=== PATIENT | female | born 1985 | race African-American/Black ===

== ENCOUNTER 2022-09-11 07:57 | Inpatient (IN) | payer OTHER ==
[2022-09-11 08:50] VITALS: BMI 25.1
[2022-09-11] MEDS ORDERED: LOPERAMIDE HCL 2 MG CAPSULE PO PRN (09:41)
[2022-09-11] MEDS ORDERED: NALOXONE HCL 0.4 MG/ML VIAL IM PRN (09:41)
[2022-09-11] MEDS ORDERED: POLYETHYLENE GLYCOL (HEALTHYLAX) 3350 17 GM PACKET PO PRN (09:41)
[2022-09-11] MEDS ORDERED: COLLOIDAL OATMEAL 1 BAR EACH TP PRN (09:41)
[2022-09-11] MEDS ORDERED: guaiFENesin 600 MG TABLET.ER (FP) PO PRN (09:41)
[2022-09-11] MEDS ORDERED: AMMONIUM LACTATE 12% LOTION 225 GM BOTTLE TP PRN (09:41)
[2022-09-11] MEDS ORDERED: MAG HYDROX/AL HYDROX/SIMETH 30 ML UNIT-DOSE CUP PO PRN (09:41)
[2022-09-11] MEDS ORDERED: BENZOCAINE/MENTHOL (CHLORASEPTIC ) LOZENGE MM PRN (09:41)
[2022-09-11] MEDS ORDERED: BENZONATATE 200 MG CAPSULE PO PRN (09:41)
[2022-09-11] MEDS ORDERED: MAGNESIUM HYDROX 2400MG/30ML ORAL SUSPENSION 30 ML CUP PO PRN (09:41)
[2022-09-11] MEDS ORDERED: NALOXONE HCL (KLOXXADO) 8 MG SPRAY NS PRN (09:41)
[2022-09-11] MEDS ORDERED: INSULIN (NOVOLOG) ASPART 100 UNITS/ML 10ML VIAL ONE (10:34)
[2022-09-11] MEDS ORDERED: NICOTINE 21 MG/24 HOURS TOPICAL PATCH ONE (10:35)
[2022-09-11] MEDS ORDERED: PRENATAL VITAMINS W/ FOLIC ACID TABLET (FP) PO ONE (10:36)
[2022-09-11] MEDS ORDERED: BUPRENORPHINE/NALOXONE 4 MG/1 MG FILM PACKET ONE (10:37)
[2022-09-11] MEDS: BUPRENORPHINE/NALOXONE 8 MG/2 MG FILM PACKET SL SCH ×3 (10:55→21:47)
[2022-09-11] MEDS: PRENATAL VITAMINS W/ FOLIC ACID TABLET (FP) PO SCH (10:56)
[2022-09-11] MEDS: metFORMIN HCL 500 MG TABLET (FP) PO SCH ×2 (10:57→17:17)
[2022-09-11] MEDS: NICOTINE 21 MG/24 HOURS TOPICAL PATCH TD SCH (10:57)
[2022-09-11] MEDS ORDERED: INSULIN SLIDING SCALE (NOVOLOG) 1 VIAL SQ SCH (11:00)
[2022-09-11] MEDS ORDERED: NICOTINE POLACRILEX 2 MG GUM ONE (12:31)
[2022-09-11] MEDS: NICOTINE POLACRILEX 2 MG GUM BUC PRN ×3 (12:33→21:54)
[2022-09-11 14:55] LABS: HEMATOCRIT 35.6 % (32.4-45.2); MCH 29.1 pg (25.7-33.7); MCHC 33.8 g/dl (32.0-36.0); PLATELET COUNT 265 10^3/uL (134-434); RBC 4.14 M/mm3 (3.60-5.2); WHITE BLOOD COUNT 3.7 K/mm3 (4.0-10.0)
[2022-09-11 15:12] LABS: CALCIUM 8.7 mg/dL (8.5-10.1)
[2022-09-11 15:13] LABS: ALBUMIN 3.1 g/dl (3.4-5.0); BLOOD UREA NITROGEN 9.7 mg/dL (7-18)
[2022-09-11 15:15] LABS: CREATININE 0.7 mg/dL (0.55-1.3)
[2022-09-11 15:17] LABS: BILIRUBIN,TOTAL 0.2 mg/dL (0.2-1); TOT PROT 5.9 g/dl (6.4-8.2)
[2022-09-11 15:28] LABS: SYPHILIS W/ RPR CONF NON-REACTIVE (NONREACTIVE)
[2022-09-11] MEDS: INSULIN SLIDING SCALE (NOVOLOG) 1 VIAL SQ SCH ×2 (17:17→22:33)
[2022-09-11] MEDS: MELATONIN 5 MG TABLETS PO SCH (21:47)
[2022-09-11] MEDS: THIAMINE HCL 100 MG TABLET (FP) PO SCH (21:47)
[2022-09-11] MEDS ORDERED: INSULIN (LEVEMIR) 100 UNITS/ML UNITS SQ SCH (22:00)
[2022-09-12] MEDS: BUPRENORPHINE/NALOXONE 8 MG/2 MG FILM PACKET SL SCH ×3 (07:12→21:06)
[2022-09-12] MEDS: metFORMIN HCL 500 MG TABLET (FP) PO SCH ×2 (07:12→17:23)
[2022-09-12] MEDS: INSULIN SLIDING SCALE (NOVOLOG) 1 VIAL SQ SCH ×4 (07:14→21:06)
[2022-09-12] MEDS: PRENATAL VITAMINS W/ FOLIC ACID TABLET (FP) PO SCH ×2 (10:41→11:23)
[2022-09-12] MEDS: NICOTINE 21 MG/24 HOURS TOPICAL PATCH TD SCH (10:41)
[2022-09-12] MEDS: NICOTINE POLACRILEX 2 MG GUM BUC PRN ×5 (11:22→21:08)
[2022-09-12] MEDS: NICOTINE 10 MG CARTRIDGE (INHALER) IH PRN ×3 (11:22→21:08)
[2022-09-12] MEDS ORDERED: INSULIN (NOVOLOG) ASPART 100 UNITS/ML 10ML VIAL ONE (12:25)
[2022-09-12] MEDS: ACETAMINOPHEN 325 MG TABLET (FP) PO PRN (14:25)
[2022-09-12] MEDS: hydrOXYzine PAMOATE 25 MG CAPSULE (FP) PO PRN (15:41)
[2022-09-12] MEDS: IBUPROFEN 600 MG TABLET (FP) PO PRN (20:00)
[2022-09-12] MEDS: THIAMINE HCL 100 MG TABLET (FP) PO SCH (21:07)
[2022-09-12] MEDS: GABAPENTIN 100 MG CAPSULE PO SCH (21:07)
[2022-09-12] MEDS: MELATONIN 5 MG TABLETS PO SCH (21:07)
[2022-09-12] MEDS ORDERED: PATIENT'S OWN MEDICATION (NON-FORMULARY) (Hydroxyzine Hcl [Hydroxyzine Hcl] 25 MG Tablet) PO SCH (22:00)
[2022-09-13] MEDS: GABAPENTIN 100 MG CAPSULE PO SCH (06:23)
[2022-09-13] MEDS: BUPRENORPHINE/NALOXONE 8 MG/2 MG FILM PACKET SL SCH ×3 (06:23→21:42)
[2022-09-13] MEDS: metFORMIN HCL 500 MG TABLET (FP) PO SCH ×2 (06:23→17:08)
[2022-09-13] MEDS: NICOTINE 10 MG CARTRIDGE (INHALER) IH PRN ×3 (06:24→21:45)
[2022-09-13] MEDS ORDERED: INSULIN (NOVOLOG) ASPART 100 UNITS/ML 10ML VIAL ONE (06:41)
[2022-09-13] MEDS: INSULIN SLIDING SCALE (NOVOLOG) 1 VIAL SQ SCH ×4 (07:54→21:45)
[2022-09-13] MEDS: IBUPROFEN 600 MG TABLET (FP) PO PRN ×2 (08:28→15:20)
[2022-09-13] MEDS ORDERED: VENLAFAXINE HCL 75 MG E.R. CAPSULES PO SCH (10:00)
[2022-09-13] MEDS: PRENATAL VITAMINS W/ FOLIC ACID TABLET (FP) PO SCH (11:33)
[2022-09-13] MEDS: NICOTINE POLACRILEX 2 MG GUM BUC PRN ×5 (11:37→21:46)
[2022-09-13] MEDS: NICOTINE 21 MG/24 HOURS TOPICAL PATCH TD SCH (11:41)
[2022-09-13] MEDS: lamoTRIgine 100 MG TABLET PO SCH (11:49)
[2022-09-13] MEDS: hydrOXYzine PAMOATE 25 MG CAPSULE (FP) PO PRN (14:06)
[2022-09-13] MEDS: THIAMINE HCL 100 MG TABLET (FP) PO SCH (21:42)
[2022-09-13] MEDS: PREGABALIN 100 MG CAPSULE PO SCH (21:42)
[2022-09-13] MEDS: MELATONIN 5 MG TABLETS PO SCH (21:42)
[2022-09-13] MEDS ORDERED: PREGABALIN 100 MG CAPSULE PO SCH (22:00)
[2022-09-14] MEDS: NICOTINE 10 MG CARTRIDGE (INHALER) IH PRN ×5 (03:17→19:33)
[2022-09-14] MEDS: NICOTINE POLACRILEX 2 MG GUM BUC PRN ×7 (03:17→19:37)
[2022-09-14] MEDS: metFORMIN HCL 500 MG TABLET (FP) PO SCH ×2 (06:42→17:20)
[2022-09-14] MEDS: BUPRENORPHINE/NALOXONE 8 MG/2 MG FILM PACKET SL SCH ×3 (06:42→21:10)
[2022-09-14] MEDS ORDERED: INSULIN (NOVOLOG) ASPART 100 UNITS/ML 10ML VIAL ONE ×2 (06:45→12:00)
[2022-09-14] MEDS: INSULIN SLIDING SCALE (NOVOLOG) 1 VIAL SQ SCH ×4 (06:45→21:09)
[2022-09-14] MEDS: ACETAMINOPHEN 325 MG TABLET (FP) PO PRN (07:12)
[2022-09-14] MEDS: PRENATAL VITAMINS W/ FOLIC ACID TABLET (FP) PO SCH (09:18)
[2022-09-14] MEDS: lamoTRIgine 100 MG TABLET PO SCH (09:18)
[2022-09-14] MEDS: PREGABALIN 100 MG CAPSULE PO SCH ×2 (09:19→21:11)
[2022-09-14] MEDS: NICOTINE 21 MG/24 HOURS TOPICAL PATCH TD SCH (09:19)
[2022-09-14] MEDS: IBUPROFEN 600 MG TABLET (FP) PO PRN (14:16)
[2022-09-14] MEDS: IBUPROFEN 400 MG TABLET (FP) PO PRN (16:11)
[2022-09-14] MEDS: hydrOXYzine PAMOATE 25 MG CAPSULE (FP) PO PRN (19:36)
[2022-09-14] MEDS: MELATONIN 5 MG TABLETS PO SCH (21:10)
[2022-09-14] MEDS: THIAMINE HCL 100 MG TABLET (FP) PO SCH (21:10)
[2022-09-15] MEDS: NICOTINE 10 MG CARTRIDGE (INHALER) IH PRN ×5 (01:49→19:58)
[2022-09-15] MEDS: NICOTINE POLACRILEX 2 MG GUM BUC PRN ×10 (01:49→21:29)
[2022-09-15] MEDS: metFORMIN HCL 500 MG TABLET (FP) PO SCH ×2 (06:32→16:45)
[2022-09-15] MEDS: BUPRENORPHINE/NALOXONE 8 MG/2 MG FILM PACKET SL SCH ×3 (06:32→19:52)
[2022-09-15] MEDS: INSULIN SLIDING SCALE (NOVOLOG) 1 VIAL SQ SCH ×4 (06:34→22:02)
[2022-09-15] MEDS: IBUPROFEN 400 MG TABLET (FP) PO PRN (06:46)
[2022-09-15] MEDS ORDERED: INSULIN (NOVOLOG) ASPART 100 UNITS/ML 10ML VIAL ONE ×2 (07:12→11:51)
[2022-09-15] MEDS: lamoTRIgine 100 MG TABLET PO SCH (09:58)
[2022-09-15] MEDS: PRENATAL VITAMINS W/ FOLIC ACID TABLET (FP) PO SCH (09:58)
[2022-09-15] MEDS: hydrOXYzine PAMOATE 25 MG CAPSULE (FP) PO PRN (09:59)
[2022-09-15] MEDS: PREGABALIN 100 MG CAPSULE PO SCH (10:26)
[2022-09-15] MEDS: DESVENLAFAXINE SUCCINATE PO SCH (13:15)
[2022-09-15] MEDS: BACLOFEN 10 MG TABLET (FP) PO SCH ×2 (13:17→21:28)
[2022-09-15 14:53] LABS: PH,URINE 6.5 (5.0-8.0); URINE APPEARANCE CLOUDY; URINE BILIRUBIN NEGATIVE (NEGATIVE); URINE COLOR YELLOW; URINE GLUCOSE (UA) TRACE (NEGATIVE); URINE KETONE NEGATIVE (NEGATIVE); URINE LEUK ESTERASE NEGATIVE (NEGATIVE); URINE NITRITE NEGATIVE (NEGATIVE); URINE PROTEIN NEGATIVE (NEGATIVE); URINE UROBILINOGEN 0.2 mg/dL (0.2-1.0)
[2022-09-15] MEDS: THIAMINE HCL 100 MG TABLET (FP) PO SCH (21:28)
[2022-09-15] MEDS: MELATONIN 5 MG TABLETS PO SCH (21:28)
[2022-09-16] MEDS: NICOTINE POLACRILEX 2 MG GUM BUC PRN ×10 (00:28→22:36)
[2022-09-16] MEDS: IBUPROFEN 400 MG TABLET (FP) PO PRN (05:55)
[2022-09-16] MEDS: BACLOFEN 10 MG TABLET (FP) PO SCH ×3 (05:56→21:07)
[2022-09-16] MEDS: BUPRENORPHINE/NALOXONE 8 MG/2 MG FILM PACKET SL SCH ×3 (05:58→20:09)
[2022-09-16] MEDS: INSULIN SLIDING SCALE (NOVOLOG) 1 VIAL SQ SCH ×4 (08:06→21:09)
[2022-09-16] MEDS: metFORMIN HCL 500 MG TABLET (FP) PO SCH ×2 (08:07→16:47)
[2022-09-16] MEDS: PRENATAL VITAMINS W/ FOLIC ACID TABLET (FP) PO SCH (10:28)
[2022-09-16] MEDS: DESVENLAFAXINE SUCCINATE PO SCH (10:28)
[2022-09-16] MEDS: lamoTRIgine 100 MG TABLET PO SCH (10:28)
[2022-09-16] MEDS: PREGABALIN 100 MG CAPSULE PO SCH (10:28)
[2022-09-16] MEDS: NICOTINE 10 MG CARTRIDGE (INHALER) IH PRN ×4 (10:30→21:08)
[2022-09-16] MEDS ORDERED: INSULIN (NOVOLOG) ASPART 100 UNITS/ML 10ML VIAL ONE (11:57)
[2022-09-16] MEDS ORDERED: TUBERCULIN PPD 5 TU/0.1ML VIAL ID ONE ×2 (15:32→16:09)
[2022-09-16] MEDS: THIAMINE HCL 100 MG TABLET (FP) PO SCH (21:07)
[2022-09-16] MEDS: MELATONIN 5 MG TABLETS PO SCH (21:07)
[2022-09-17] MEDS: NICOTINE POLACRILEX 2 MG GUM BUC PRN ×8 (00:30→21:25)
[2022-09-17] MEDS: BUPRENORPHINE/NALOXONE 8 MG/2 MG FILM PACKET SL SCH ×3 (06:37→19:42)
[2022-09-17] MEDS: metFORMIN HCL 500 MG TABLET (FP) PO SCH ×2 (06:37→17:08)
[2022-09-17] MEDS: BACLOFEN 10 MG TABLET (FP) PO SCH ×3 (06:38→21:24)
[2022-09-17] MEDS: ACETAMINOPHEN 325 MG TABLET (FP) PO PRN (06:39)
[2022-09-17] MEDS: NICOTINE 10 MG CARTRIDGE (INHALER) IH PRN ×4 (06:41→18:07)
[2022-09-17] MEDS ORDERED: INSULIN (NOVOLOG) ASPART 100 UNITS/ML 10ML VIAL ONE ×2 (07:17→11:41)
[2022-09-17] MEDS: INSULIN SLIDING SCALE (NOVOLOG) 1 VIAL SQ SCH ×4 (07:46→21:48)
[2022-09-17] MEDS: PRENATAL VITAMINS W/ FOLIC ACID TABLET (FP) PO SCH (10:29)
[2022-09-17] MEDS: DESVENLAFAXINE SUCCINATE PO SCH (10:29)
[2022-09-17] MEDS: PREGABALIN 100 MG CAPSULE PO SCH (10:30)
[2022-09-17] MEDS: lamoTRIgine 100 MG TABLET PO SCH (10:30)
[2022-09-17] MEDS: IBUPROFEN 400 MG TABLET (FP) PO PRN (14:40)
[2022-09-17] MEDS: THIAMINE HCL 100 MG TABLET (FP) PO SCH (21:24)
[2022-09-17] MEDS: MELATONIN 5 MG TABLETS PO SCH (21:24)
[2022-09-18] MEDS: ACETAMINOPHEN 325 MG TABLET (FP) PO PRN (03:01)
[2022-09-18] MEDS: INSULIN SLIDING SCALE (NOVOLOG) 1 VIAL SQ SCH ×4 (07:18→21:19)
[2022-09-18] MEDS: BACLOFEN 10 MG TABLET (FP) PO SCH ×3 (07:19→21:13)
[2022-09-18] MEDS: BUPRENORPHINE/NALOXONE 8 MG/2 MG FILM PACKET SL SCH ×3 (07:19→20:21)
[2022-09-18] MEDS: metFORMIN HCL 500 MG TABLET (FP) PO SCH ×2 (07:19→17:07)
[2022-09-18] MEDS: NICOTINE 10 MG CARTRIDGE (INHALER) IH PRN ×4 (07:21→21:13)
[2022-09-18] MEDS: NICOTINE POLACRILEX 2 MG GUM BUC PRN ×7 (07:21→22:21)
[2022-09-18] MEDS: PRENATAL VITAMINS W/ FOLIC ACID TABLET (FP) PO SCH (10:27)
[2022-09-18] MEDS: DESVENLAFAXINE SUCCINATE PO SCH (10:28)
[2022-09-18] MEDS: lamoTRIgine 100 MG TABLET PO SCH (10:28)
[2022-09-18] MEDS: PREGABALIN 100 MG CAPSULE PO SCH (10:28)
[2022-09-18] MEDS: DEXTROAMPHETAMINE/AMPHETAMINE 10 MG CAP.ER.24H PO SCH (10:28)
[2022-09-18] MEDS ORDERED: INSULIN (NOVOLOG) ASPART 100 UNITS/ML 10ML VIAL ONE (12:03)
[2022-09-18] MEDS: THIAMINE HCL 100 MG TABLET (FP) PO SCH (21:13)
[2022-09-18] MEDS: MELATONIN 5 MG TABLETS PO SCH (21:13)
[2022-09-19] MEDS: NICOTINE 10 MG CARTRIDGE (INHALER) IH PRN ×5 (01:03→20:53)
[2022-09-19] MEDS: NICOTINE POLACRILEX 2 MG GUM BUC PRN (01:03)
[2022-09-19] MEDS: metFORMIN HCL 500 MG TABLET (FP) PO SCH ×2 (07:05→17:13)
[2022-09-19] MEDS: BACLOFEN 10 MG TABLET (FP) PO SCH ×3 (07:06→21:40)
[2022-09-19] MEDS: BUPRENORPHINE/NALOXONE 8 MG/2 MG FILM PACKET SL SCH ×3 (07:06→19:33)
[2022-09-19] MEDS ORDERED: INSULIN (NOVOLOG) ASPART 100 UNITS/ML 10ML VIAL ONE (07:08)
[2022-09-19] MEDS: INSULIN SLIDING SCALE (NOVOLOG) 1 VIAL SQ SCH ×4 (07:09→21:43)
[2022-09-19] MEDS: PREGABALIN 100 MG CAPSULE PO SCH (10:51)
[2022-09-19] MEDS: lamoTRIgine 100 MG TABLET PO SCH (10:51)
[2022-09-19] MEDS: PRENATAL VITAMINS W/ FOLIC ACID TABLET (FP) PO SCH (10:52)
[2022-09-19] MEDS: DESVENLAFAXINE SUCCINATE PO SCH (10:52)
[2022-09-19] MEDS: DEXTROAMPHETAMINE/AMPHETAMINE 10 MG CAP.ER.24H PO SCH (10:52)
[2022-09-19] MEDS: NICOTINE POLACRILEX 4 MG GUM BUC PRN ×4 (10:57→21:43)
[2022-09-19] MEDS: IBUPROFEN 400 MG TABLET (FP) PO PRN (15:41)
[2022-09-19] MEDS: MELATONIN 5 MG TABLETS PO SCH (21:40)
[2022-09-19] MEDS: THIAMINE HCL 100 MG TABLET (FP) PO SCH (21:40)
[2022-09-20] MEDS: INSULIN SLIDING SCALE (NOVOLOG) 1 VIAL SQ SCH ×5 (00:19→22:47)
[2022-09-20] MEDS: NICOTINE POLACRILEX 4 MG GUM BUC PRN ×6 (02:23→20:50)
[2022-09-20] MEDS: NICOTINE 10 MG CARTRIDGE (INHALER) IH PRN ×4 (02:23→20:49)
[2022-09-20] MEDS: BACLOFEN 10 MG TABLET (FP) PO SCH ×3 (06:55→21:14)
[2022-09-20] MEDS: metFORMIN HCL 500 MG TABLET (FP) PO SCH ×2 (06:55→17:57)
[2022-09-20] MEDS: BUPRENORPHINE/NALOXONE 8 MG/2 MG FILM PACKET SL SCH ×3 (06:56→19:45)
[2022-09-20] MEDS: hydrOXYzine PAMOATE 25 MG CAPSULE (FP) PO PRN (06:57)
[2022-09-20] MEDS ORDERED: INSULIN (NOVOLOG) ASPART 100 UNITS/ML 10ML VIAL ONE (07:00)
[2022-09-20] MEDS: lamoTRIgine 100 MG TABLET PO SCH (09:45)
[2022-09-20] MEDS: DEXTROAMPHETAMINE/AMPHETAMINE 10 MG CAP.ER.24H PO SCH (09:47)
[2022-09-20] MEDS: PREGABALIN 100 MG CAPSULE PO SCH (09:47)
[2022-09-20] MEDS: PRENATAL VITAMINS W/ FOLIC ACID TABLET (FP) PO SCH (09:48)
[2022-09-20] MEDS: DESVENLAFAXINE SUCCINATE PO SCH (09:48)
[2022-09-20] MEDS: IBUPROFEN 600 MG TABLET (FP) PO PRN (18:11)
[2022-09-20] MEDS: MELATONIN 5 MG TABLETS PO SCH (21:14)
[2022-09-20] MEDS: THIAMINE HCL 100 MG TABLET (FP) PO SCH (21:14)
[2022-09-20] MEDS ORDERED: INSULIN (NOVOLOG) ASPART 100 UNITS/ML 10ML VIAL SQ ONE (23:02)
[2022-09-21] MEDS: NICOTINE 10 MG CARTRIDGE (INHALER) IH PRN ×5 (00:55→20:50)
[2022-09-21] MEDS: NICOTINE POLACRILEX 4 MG GUM BUC PRN ×8 (01:53→23:51)
[2022-09-21] MEDS: INSULIN SLIDING SCALE (NOVOLOG) 1 VIAL SQ SCH ×4 (07:08→21:24)
[2022-09-21] MEDS: BACLOFEN 10 MG TABLET (FP) PO SCH ×3 (07:08→21:21)
[2022-09-21] MEDS: BUPRENORPHINE/NALOXONE 8 MG/2 MG FILM PACKET SL SCH ×3 (07:08→19:11)
[2022-09-21] MEDS: metFORMIN HCL 500 MG TABLET (FP) PO SCH ×2 (07:08→16:39)
[2022-09-21] MEDS ORDERED: INSULIN (NOVOLOG) ASPART 100 UNITS/ML 10ML VIAL ONE ×2 (07:33→13:51)
[2022-09-21] MEDS: PRENATAL VITAMINS W/ FOLIC ACID TABLET (FP) PO SCH (09:48)
[2022-09-21] MEDS: DESVENLAFAXINE SUCCINATE PO SCH (09:48)
[2022-09-21] MEDS: lamoTRIgine 100 MG TABLET PO SCH (09:49)
[2022-09-21] MEDS: DEXTROAMPHETAMINE/AMPHETAMINE 10 MG CAP.ER.24H PO SCH (09:49)
[2022-09-21] MEDS: PREGABALIN 100 MG CAPSULE PO SCH (09:49)
[2022-09-21] MEDS: IBUPROFEN 400 MG TABLET (FP) PO PRN ×2 (14:06→21:28)
[2022-09-21] MEDS: MELATONIN 5 MG TABLETS PO SCH (21:21)
[2022-09-21] MEDS: THIAMINE HCL 100 MG TABLET (FP) PO SCH (21:22)
[2022-09-22] MEDS: NICOTINE 10 MG CARTRIDGE (INHALER) IH PRN ×4 (03:21→21:34)
[2022-09-22] MEDS: metFORMIN HCL 500 MG TABLET (FP) PO SCH ×2 (06:10→17:03)
[2022-09-22] MEDS: BACLOFEN 10 MG TABLET (FP) PO SCH ×3 (06:10→21:32)
[2022-09-22] MEDS: BUPRENORPHINE/NALOXONE 8 MG/2 MG FILM PACKET SL SCH ×3 (06:10→19:20)
[2022-09-22] MEDS: NICOTINE POLACRILEX 4 MG GUM BUC PRN ×6 (06:11→19:22)
[2022-09-22] MEDS: INSULIN SLIDING SCALE (NOVOLOG) 1 VIAL SQ SCH ×4 (07:52→23:36)
[2022-09-22] MEDS ORDERED: INSULIN (NOVOLOG) ASPART 100 UNITS/ML 10ML VIAL ONE (07:54)
[2022-09-22] MEDS: lamoTRIgine 100 MG TABLET PO SCH (10:25)
[2022-09-22] MEDS: PRENATAL VITAMINS W/ FOLIC ACID TABLET (FP) PO SCH (10:25)
[2022-09-22] MEDS: DEXTROAMPHETAMINE/AMPHETAMINE 10 MG CAP.ER.24H PO SCH (10:25)
[2022-09-22] MEDS: PREGABALIN 100 MG CAPSULE PO SCH (10:25)
[2022-09-22] MEDS: DESVENLAFAXINE SUCCINATE PO SCH (10:25)
[2022-09-22] MEDS: ACETAMINOPHEN 325 MG TABLET (FP) PO PRN (14:00)
[2022-09-22] MEDS: THIAMINE HCL 100 MG TABLET (FP) PO SCH (21:32)
[2022-09-22] MEDS: MELATONIN 5 MG TABLETS PO SCH (21:32)
[2022-09-22] MEDS: IBUPROFEN 600 MG TABLET (FP) PO PRN (22:46)
[2022-09-23] MEDS: NICOTINE POLACRILEX 4 MG GUM BUC PRN ×4 (04:10→12:55)
[2022-09-23] MEDS: BUPRENORPHINE/NALOXONE 8 MG/2 MG FILM PACKET SL SCH (06:20)
[2022-09-23] MEDS: BACLOFEN 10 MG TABLET (FP) PO SCH (06:20)
[2022-09-23] MEDS ORDERED: INSULIN (NOVOLOG) ASPART 100 UNITS/ML 10ML VIAL ONE ×2 (06:20→12:15)
[2022-09-23] MEDS: metFORMIN HCL 500 MG TABLET (FP) PO SCH (06:20)
[2022-09-23] MEDS: ACETAMINOPHEN 325 MG TABLET (FP) PO PRN (06:21)
[2022-09-23] MEDS: NICOTINE 10 MG CARTRIDGE (INHALER) IH PRN ×2 (06:23→09:54)
[2022-09-23] MEDS: INSULIN SLIDING SCALE (NOVOLOG) 1 VIAL SQ SCH ×2 (06:23→12:12)
[2022-09-23 08:01] VITALS: BP 123/75; PULSE 90; RESP 18; TEMP 97.5
[2022-09-23] MEDS: DEXTROAMPHETAMINE/AMPHETAMINE 10 MG CAP.ER.24H PO SCH (09:52)
[2022-09-23] MEDS: PREGABALIN 100 MG CAPSULE PO SCH (09:52)
[2022-09-23] MEDS: PRENATAL VITAMINS W/ FOLIC ACID TABLET (FP) PO SCH (09:52)
[2022-09-23] MEDS: lamoTRIgine 100 MG TABLET PO SCH (09:52)
[2022-09-23] MEDS: DESVENLAFAXINE SUCCINATE PO SCH (09:52)
== END 2022-09-23 13:15 | disposition home or self-care (01) | DRG 772 ==
LOC: YASAS 07:57 → Y5N 12:17
PROVIDERS: ADMIT Allergy & Immunology; ATTEND Psychiatry & Neurology Pain Medicine
PROC: HZ42ZZZ Group Counseling for Substance Abuse Treatment, Cognitive-Behavioral (ICD-10-PCS; principal; 2022-09-11)
DX: F11.20 Opioid dependence, uncomplicated (principal); F14.20 Cocaine dependence, uncomplicated; F16.20 Hallucinogen dependence, uncomplicated; F17.210 Nicotine dependence, cigarettes, uncomplicated; F31.4 Bipolar disorder, current episode depressed, severe, without psychotic features; F41.8 Other specified anxiety disorders; F90.9 Attention-deficit hyperactivity disorder, unspecified type; E11.65 Type 2 diabetes mellitus with hyperglycemia; Z79.4 Long term (current) use of insulin; G62.9 Polyneuropathy, unspecified; Z28.310 Unvaccinated for COVID-19; Z28.9 Immunization not carried out for unspecified reason; Z88.0 Allergy status to penicillin
CPT/HCPCS: 36415; 80053; 81003; 82962; 85027; 86780; 86803; 87811; C9803-CS; J0475; U0003; U0005